=== PATIENT | female | born 1985 | race Caucasian/White ===

== ENCOUNTER 2021-07-10 22:31 | Emergency (ER) | payer BC ==
[~2021-07-10] VITALS: Ht 180.3 cm; Wt 99.8 kg
--- NOTE | 2021-07-10 22:59 | ED Abdominal Pain ---
General Chief Complaint: Abdominal/GI Problems Stated Complaint: ABDOMINAL PAIN Source of Information: Patient History of Present Illness Date Seen by Provider: Jul 10, 2021 Time Seen by Provider: 22:37 Initial Comments Patient to ER by private conveyance with chief complaint left lower quadrant abdominal pain with some red rash overlying it. No fever chills nausea vomiting diarrhea malaise body aches or recent trauma. She has not tried anything for it. The pain started about 1700 tonight, 6 hours prior to arrival. She had her gallbladder out. No personal or family history of coronary disease. She smokes about a pack a day. No history of hypertension hyperlipidemia diabetes. No diarrhea or constipation. Allergies and Home Medications Allergies Coded Allergies: No Known Drug Allergies (Unverified , 07/10/21) Patient Home Medication List Home Medication List Reviewed: Yes Acyclovir (Acyclovir) 800 Mg Tablet, 800 MG PO 5XD Prescribed by: JOANN GARDNER on 07/11/21 0145 Hydrocodone/Acetaminophen (Hydrocodone-Acetamin 5-325 mg) 1 Each Tablet, 1 TAB PO Q6H PRN for PAIN-MODERATE (5-7) Prescribed by: JOANN GARDNER on 07/11/21 0145 Review of Systems Review of Systems Constitutional: No chills, No fever, No malaise EENTM: No Blurred Vision, No Double Vision Respiratory: Denies Cough, Denies Shortness of Air Cardiovascular: Denies Chest Pain, Denies Lightheadedness Gastrointestinal: See HPI, Abdominal Pain; Denies Constipated, Denies Diarrhea, Denies Nausea Genitourinary: Denies Burning, Denies Discharge Musculoskeletal: No back pain, No joint pain Skin: No dryness, No pruritus, No rash Psychiatric/Neurological: Denies Headache, Denies Numbness All Other Systems Reviewed Negative Unless Noted: Yes Past Rclakrg-Vksasc-Cnghyf Hx Patient Social History Tobacco Use?: Yes Tobacco type used: Cigarettes Smoking Status: Current Everyday Smoker Smokeless Tobacco Frequency: Never a User Use of E-Cig and/or Vaping dev: No Substance use?: Yes Substance type: Marijuana Substance frequency: Rarely Alcohol Use?: No Pt feels they are or have been: No Immunizations Up To Date Influenza Vaccine Up-to-Date: No; Not Current COVID19 Vaccine [employer]: No Vaccine Physical Exam Vital Signs Vital Signs - First Documented 07/10/21 07/11/21 22:38 01:49 Temp 36.2 Pulse 89 Resp 18 B/P (MAP) 120/75 Pulse Ox 100 O2 Delivery Room Air Capillary Refill : Height/Weight/BMI Height: '" Weight: lbs. oz. kg; BMI Method: General Appearance: WD/WN, mild distress HEENT: PERRL/EOMI; No pharynx normal (Mildly dry mucous) Neck: non-tender, full range of motion, normal inspection Respiratory: lungs clear, normal breath sounds, no respiratory distress, no accessory muscle use Cardiovascular: normal peripheral pulses, regular rate, rhythm Gastrointestinal: normal bowel sounds, soft, no organomegaly, tenderness (Left upper quadrant), other (No splenomegaly.) Extremities: normal range of motion, non-tender, normal inspection, normal capillary refill Neurologic/Psychiatric: alert, normal mood/affect, oriented x 3 Skin: warm/dry, rash (Faint erythematous rash over the left upper quadrant abdomen and left flank at the site of her discomfort.), other (No pruritus) Progress/Results/Core Measures Results/Orders Lab Results Laboratory Tests Test 07/10/21 22:57 07/10/21 23:06 Range/Units Urine Color YELLOW Urine Clarity CLEAR Urine pH 6.0 5-9 Urine Specific [place] >=1.030 1.016-1.022 Urine Protein NEGATIVE NEGATIVE Urine Glucose (UA) NEGATIVE NEGATIVE Urine Ketones NEGATIVE NEGATIVE Urine Nitrite NEGATIVE NEGATIVE Urine Bilirubin NEGATIVE NEGATIVE Urine Urobilinogen 1.0 < = 1.0 MG/DL Urine Leukocyte Esterase NEGATIVE NEGATIVE Urine RBC (Auto) NEGATIVE NEGATIVE Urine RBC NONE /HPF Urine WBC NONE /HPF Urine Squamous Epithelial Cells 5-10 /HPF Urine Crystals NONE /LPF Urine Bacteria NEGATIVE /HPF Urine Casts NONE /LPF Urine Mucus SMALL H /LPF Urine Culture Indicated NO White Blood Count 8.4 4.3-11.0 10^3/uL Red Blood Count 3.99 3.80-5.11 10^6/uL Hemoglobin 11.8 11.5-16.0 g/dL Hematocrit 36 35-52 % Mean Corpuscular Volume 90 80-99 fL Mean Corpuscular Hemoglobin 30 25-34 pg Mean Corpuscular Hemoglobin Concent 33 32-36 g/dL Red Cell Distribution Width 12.5 10.0-14.5 % Platelet Count 244 130-400 10^3/uL Mean Platelet Volume 9.3 9.0-12.2 fL Immature Granulocyte % (Auto) 0 % Neutrophils (%) (Auto) 65 42-75 % Lymphocytes (%) (Auto) 25 12-44 % Monocytes (%) (Auto) 8 0-12 % Eosinophils (%) (Auto) 2 0-10 % Basophils (%) (Auto) 1 0-10 % Neutrophils # (Auto) 5.4 1.8-7.8 10^3/uL Lymphocytes # (Auto) 2.1 1.0-4.0 10^3/uL Monocytes # (Auto) 0.6 0.0-1.0 10^3/uL Eosinophils # (Auto) 0.2 0.0-0.3 10^3/uL Basophils # (Auto) 0.0 0.0-0.1 10^3/uL Immature Granulocyte # (Auto) 0.0 0.0-0.1 10^3/uL Sodium Level 138 135-145 MMOL/L Potassium Level 3.6 3.6-5.0 MMOL/L Chloride Level 107 98-107 MMOL/L Carbon Dioxide Level 22 21-32 MMOL/L Anion Gap 9 5-14 MMOL/L Blood Urea Nitrogen 13 7-18 MG/DL Creatinine 0.79 0.60-1.30 MG/DL Estimat Glomerular Filtration Rate 81 BUN/Creatinine Ratio 16 Glucose Level 94 70-105 MG/DL Calcium Level 9.2 8.5-10.1 MG/DL Corrected Calcium 9.3 8.5-10.1 MG/DL Total Bilirubin 0.4 0.1-1.0 MG/DL Aspartate Amino Transf (AST/SGOT) 14 5-34 U/L Alanine Aminotransferase (ALT/SGPT) 16 0-55 U/L Alkaline Phosphatase 41 40-136 U/L Troponin I < 0.028 <0.028 NG/ML C-Reactive Protein High Sensitivity 0.47 0.00-0.50 MG/DL Total Protein 6.4 6.4-8.2 GM/DL Albumin 3.9 3.2-4.5 GM/DL Lipase 21 8-78 U/L My Orders Orders - JOANN GRADNER Cbc With Automated Diff (07/10/21 22:57) Comprehensive Metabolic Panel (07/10/21 22:57) Hs C Reactive Protein (07/10/21 22:57) Lipase (07/10/21 22:57) Ua Culture If Indicated (07/10/21 22:57) Urine Bedside (07/10/21 22:57) Ekg Tracing (07/10/21 23:10) Continuous Ekg Monitoring (07/10/21 23:10) Troponin I (07/10/21 23:10) Lidocaine 2% Viscous 15 Ml (Xylocaine Vi (07/10/21 23:30) Famotidine Tablet (Pepcid Tablet) (07/10/21 23:23) Antacid Suspension (Mylanta Suspension (07/10/21 23:30) Ketorolac Injection (Toradol Injection) (07/11/21 00:15) Chest 1 View, Ap/Pa Only (07/11/21 ) Acyclovir Capsule/Tablet (Zovirax Caps (07/11/21 01:45) Rx-Hydrocodone/Apap 5-325 Mg (Rx-Vicodin (07/11/21 01:45) Medications Given in ED Current Medications Medications Dose Ordered Sig/Vidya Route Start Time Stop Time Status Last Admin Dose Admin Acetaminophen/ Hydrocodone Bitart 1 ea Q6H PRN PO 07/11/21 01:45 07/11/21 01:53 DC 07/11/21 01:52 1 EA Acyclovir 800 mg ONCE ONCE PO 07/11/21 01:45 07/11/21 01:46 DC 07/11/21 01:52 800 MG Al Hydrox/Mg Hydrox/Simethicone 30 ml ONCE ONCE PO 07/10/21 23:30 07/10/21 23:31 DC 07/10/21 23:30 30 ML Ketorolac Tromethamine 60 mg ONCE ONCE IM 07/11/21 00:15 07/11/21 00:16 DC 07/11/21 00:08 60 MG Lidocaine HCl 15 ml ONCE ONCE PO 07/10/21 23:30 07/10/21 23:31 DC 07/10/21 23:30 15 ML Vital Signs/I&O 07/10/21 07/11/21 22:38 01:49 Temp 36.2 36.2 Pulse 89 70 Resp 18 16 B/P (MAP) 120/75 Pulse Ox 100 99 O2 Delivery Room Air Room Air Progress Progress Note #1: Time: 23:43 Progress Note GI cocktail. Possibility of an atypical angina so he got an EKG and a troponin. Get some labs. Aseptic normal vital signs, nonacute abdomen. While she is a smoker she is not on control and she is on her period presently with no evidence of DVT and no personal or familial history of blood clots PE seems less likely especially since her pain seems to be in her abdomen. Appendix is very unlikely in the left upper quadrant abdomen. She is already had her gallbladder out. Pancreatitis can be checked with a lipase. Gastritis or GERD with a GI cocktail. Progress Note #2: Time: 00:03 Progress Note GI cocktail did nothing for her abdominal discomfort in her left upper quadrant abdomen. Plan to give her some Toradol and reexamine. She has a light rash in that area and shingles could be entertained if there were more prominent. If Toradol does not help we may put her on an antiviral and have her follow-up outpatient. Could also consider imaging however her blood work is relatively benign and more consistent with a benign process. Initial ECG Impression Date: Jul 10, 2021 Initial ECG Impression Time: 23:16 Initial ECG Rate: 75 Initial ECG Rhythm: Normal Sinus Initial ECG Intervals: Normal Initial ECG Impression: Normal Comment Normal sinus rhythm without clinically relevant ST elevation or depression Diagnostic Imaging Diagonstic Imaging: Xray Plain Films/CT/US/NM/MRI: chest Comments [facility], [place] NAME: VIVIENNE DUNN [facility] REC#: [id number] PT STATUS: DEP ER : 1985 PHYSICIAN: JOANN GARDNER MD ADMIT DATE: 07/10/21/ER Draft Date of Exam:07/11/21 CHEST 1 VIEW, AP/PA ONLY EXAM: CHEST 1 VIEW, AP/PA ONLY INDICATION: Pain on inspiration. COMPARISON: None. FINDINGS: Normal heart size and pulmonary vascularity. No dense consolidation, pleural effusion or pneumothorax. No acute osseous findings. IMPRESSION: No acute cardiopulmonary findings. Dictated on workstation # [id number] Dict: 07/11/21615 Trans: 07/11/21 0617 [id number] Interpreted by: MAXIMILIANO LORA MD Electronically signed by: Reviewed: Reviewed by Me Departure Impression Primary Impression: LUQ abdominal pain Additional Impression: Shingles Qualified Codes: B02.9 - Zoster without complications Disposition: HOME, SELF-CARE Condition: Stable Departure-Patient Inst. Decision time for Depature: 01:42 Patient Instructions: Shingles Add. Discharge Instructions: Is not entirely clear that you have shingles however we will put you on some antivirals as they are low risk and see if you see some improvement by next week. If not follow-up with your primary care provider for further evaluation. Tylenol 1000 mg every 8 hours as necessary for pain. Ibuprofen 800 mg every 8 hours necessary for pain. Capsaicin oil or creams available [id number] as necessary for pain. If you are still having severe breakthrough pain you may use hydrocodone 1 tablet every 6 hours as needed but will cause constipation as well as drowsiness and should not be mixed with alcohol or operating heavy machinery. Acyclovir 1 tablet 5 times a day for the next week. All discharge instructions reviewed with patient and/or family. Voiced understanding. Scripts Acyclovir (Acyclovir) 800 Mg Tablet 800 MG PO 5XD for 7 Days, #35 TAB 0 Refills Prov: JOANN GARDNER 07/11/21 Hydrocodone/Acetaminophen (Hydrocodone-Acetamin 5-325 mg) 1 Each Tablet 1 TAB PO Q6H PRN for PAIN-MODERATE (5-7), #10 TAB 0 Refills Prov: JOANN GARDNER 07/11/21 Work/School Note: Work Release Form Date Seen in the Emergency Department: Jul 11, 2021 Return to Work: Jul 12, 2021 Restrictions: No Restrictions JOANN GARDNER Jul 10, 2021 22:59
[2021-07-10 23:15] LABS: BASOPHILS % (AUTO) 1 % (0-10); EOSINOPHILS # (AUTO) 0.2 10^3/uL (0.0-0.3); EOSINOPHILS % (AUTO) 2 % (0-10); HEMATOCRIT 36 % (35-52); HEMOGLOBIN 11.8 g/dL (11.5-16.0); LYMPHOCYTES # (AUTO) 2.1 10^3/uL (1.0-4.0); LYMPHOCYTES % (AUTO) 25 % (12-44); MEAN CORPUSCULAR HEMOGLOBIN 30 pg (25-34); MEAN CORPUSCULAR HGB CONC 33 g/dL (32-36); MEAN CORPUSCULAR VOLUME 90 fL (80-99); MEAN PLATELET VOLUME 9.3 fL (9.0-12.2); MONOCYTES # (AUTO) 0.6 10^3/uL (0.0-1.0); MONOCYTES % (AUTO) 8 % (0-12); NEUTROPHILS # (AUTO) 5.4 10^3/uL (1.8-7.8); NEUTROPHILS % (AUTO) 65 % (42-75); PLATELET COUNT 244 10^3/uL (130-400); WHITE BLOOD COUNT 8.4 10^3/uL (4.3-11.0)
[2021-07-10] MEDS ORDERED: FAMOTIDINE 20 MG (PEPCID) TABLET PO STA (23:23)
[2021-07-10 23:25] LABS: ALBUMIN 3.9 GM/DL (3.2-4.5)
[2021-07-10 23:26] LABS: POTASSIUM 3.6 MMOL/L (3.6-5.0)
[2021-07-10 23:27] LABS: CALCIUM 9.2 MG/DL (8.5-10.1)
[2021-07-10 23:28] LABS: TOTAL PROTEIN 6.4 GM/DL (6.4-8.2)
[2021-07-10 23:30] LABS: BILIRUBIN,TOTAL 0.4 MG/DL (0.1-1.0)
[2021-07-10] MEDS ORDERED: ANTACID SUSP 30 ML UDC (MYLANTA) PO ONE (23:30)
[2021-07-10] MEDS ORDERED: LIDOCAINE 2% VISCOUS 15 ML UDC PO ONE (23:30)
[2021-07-10 23:32] LABS: CREATININE SERUM 0.79 MG/DL (0.60-1.30)
[2021-07-11 00:02] LABS: BILIRUBIN,URINE NEGATIVE (NEGATIVE); CLARITY,URINE CLEAR; COLOR,URINE YELLOW; GLUCOSE, URINE (UA) NEGATIVE (NEGATIVE); KETONES,URINE NEGATIVE (NEGATIVE); LEUKOCYTE ESTERASE ,URINE NEGATIVE (NEGATIVE); NITRITE,URINE NEGATIVE (NEGATIVE); PROTEIN,URINE NEGATIVE (NEGATIVE)
[2021-07-11 00:15] LABS: BACTERIA,URINE NEGATIVE /HPF
[2021-07-11] MEDS ORDERED: KETOROLAC 60 MG/2 ML VIAL IM ONE (00:15)
[2021-07-11] MEDS ORDERED: ACYC-112 PO (01:45)
[2021-07-11] MEDS ORDERED: ACHD5005 PO (01:45)
[2021-07-11] MEDS ORDERED: ACYCLOVIR 400 MG TABLET (ZOVIRAX) PO ONE (01:45)
[2021-07-11 01:49] VITALS: BP 120/75
--- NOTE | 2021-07-11 06:18 | Diagnostic Imaging Report ---
EXAM: CHEST 1 VIEW, AP/PA ONLY INDICATION: Pain on inspiration. COMPARISON: None. FINDINGS: Normal heart size and pulmonary vascularity. No dense consolidation, pleural effusion or pneumothorax. No acute osseous findings. IMPRESSION: No acute cardiopulmonary findings. Dictated by: Dictated on workstation # [id number]
== END 2021-07-11 01:53 | disposition home or self-care (01) ==
LOC: ER 22:35
DX: R10.12 Left upper quadrant pain (principal); B02.9 Zoster without complications; F17.210 Nicotine dependence, cigarettes, uncomplicated
CPT/HCPCS: 36415; 71045; 80053; 81000; 83690; 84484; 84703; 85025; 86141; 93005